=== PATIENT | male | born 1990 ===

== ENCOUNTER 2023-04-08 11:39 | Emergency (ER) | payer OTHER, SELFPAY ==
--- NOTE | ~2023-04-08 | XR_ITS ---
EXAMINATION: XR knee LT min 4V DATE: 04/08/2023 12:10 INDICATION: Left knee pain TECHNIQUE: Four views of the left knee were obtained. COMPARISON: None. FINDINGS: Alignment is normal. There is mild cortical irregularity along the posterior/inferior veronica n of the patella. Joint spaces are normal with no erosions. There is a large knee joint effusion wit h apparent lipohemarthrosis. There is anterior soft tissue swelling of the knee. IMPRESSION: 1. Findings suspicious for patellar fracture and lipohemarthrosis of the knee. Consider further evalu ation with CT or MRI. Reviewed, dictated and finalized at location A. IMPRESSION: 1. Findings suspicious for patellar fracture and lipohemarthrosis of the knee. Consider further evaluation with CT or MRI.
[2023-04-08 11:54] VITALS: BP 121/66; PULSE 80; RESP 18; TEMP 36.6; O2SAT 100
--- NOTE | 2023-04-08 12:34 | ED.LOWEXIN ---
HPI - Extremity Injury (Lower) General Chief Complaint: Extremity Injury, Lower Stated Complaint: lt lower extremity injury Time Seen by Provider: 04/08/23 12:21 Source: patient and RN notes reviewed Mode of arrival: ambulatory Limitations: no limitations History of Present Illness HPI Narrative: Patient presents today with a left knee injury. 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 States his left lower leg went [address] way when his thigh went another way. Reports significant swelling in the knee. Denies pain at rest, but pain increases significantly with movement. He has been taking ibuprofen with some relief. Denies numbness or tingling. Related Data Allergies Allergy/AdvReac Type Severity Reaction Status Date / Time No Known Allergies Allergy Unverified 04/20/21 15:06 Review of Systems Review of Systems: CONSTITUTIONAL: Denies body aches, fever, chills, or sweats. EYES: Denies visual changes, redness, or discharge. ENT: Denies rhinorrhea, congestion, sore throat, or otalgia. CARDIOVASCULAR: Denies chest pain, palpitations, or edema. RESPIRATORY: Denies cough or dyspnea. GASTROINTESTINAL: Denies abdominal pain, nausea, vomiting, or diarrhea. GENITOURINARY: Denies dysuria or hematuria. SKIN: Denies rash, itching, or wounds. MUSCULOSKELETAL: Denies back pain, or myalgia.+ left knee pain and swelling NEUROLOGIC: Denies headache, numbness, tingling, or weakness. PSYCH: Denies depression or anxiety. [facility] Surgical History Surgical History Previous back surgery 2004 Social History Social History Smoking status: Never smoker Second hand tobacco smoke exposure: No Alcohol intake: current Substance use: unknown Comments At time of signature, I have reviewed and agree with nursing past medical, surgical, social and family history unless otherwise noted. Please see nursing chart for further information. There is no relevant family history pertinent to the presenting complaint Exam Narrative: GENERAL: Well-appearing, well-nourished, and in no acute distress. HEAD: Normocephalic, atraumatic. EYES: EOMI. No redness or drainage. Conjunctivae normal. ENT: Mucous membranes pink and moist. NECK: Normal AROM. CHEST: No respiratory distress. EXTREMITIES: Left knee: Obvious moderate diffusion. Mild tenderness to palpation. No abnormal movement of the patella. No tenderness to the patella. No tenderness to the patellar tendon. Skin a decreased range of motion due to pain. Distal sensation intact. Posterior tibial pulse normal. SKIN: Warm, dry, no rash. Capillary refill normal. Normal skin turgor. NEURO: No focal deficits. Alert and oriented x3. Gait steady. PSYCH: Normal affect. No signs of depression or anxiety. Course Course Level of Care: Express Care Visit Vital Signs Vital signs: Vital Signs Temperature 97.8 F 04/08/23 11:54 Pulse Rate 80 04/08/23 11:54 Respiratory Rate 18 04/08/23 11:54 Blood Pressure 121/66 04/08/23 11:54 Pulse Oximetry 100 04/08/23 11:54 Oxygen Delivery Room Air 04/08/23 11:54 Temperature 97.8 F 04/08/23 11:54 Pulse Rate 80 04/08/23 11:54 Respiratory Rate 18 04/08/23 11:54 Blood Pressure 121/66 04/08/23 11:54 Pulse Oximetry 100 04/08/23 11:54 Oxygen Delivery Room Air 04/08/23 11:54 Reviewed. Pt has been instructed to follow up with his PCP regarding his elevated blood pressure today. MDM - Extremity Injury (Lower) MDM Narrative Medical decision making narrative: X-ray shows large lipohemarthrosis with possibility of patellar fracture. Discussed x-ray results with patient and give option to go to the ER for further evaluation of his injury. Patient declines ER transfer today and wishes to follow-up with orthopedics. Will place patient in a knee immobilizer. Prescription for
== END 2023-04-08 13:30 | disposition home or self-care (01) ==
PROVIDERS: Emergency Provider Nurse Practitioner; PCP Internal Medicine
DX: S89.92XA Unspecified injury of left lower leg, initial encounter (principal); W51.XXXA Accidental striking against or bumped into by another person, initial encounter; Y93.22 Activity, ice hockey
CPT/HCPCS: 73564; 99213; G0463; L1830

== ENCOUNTER 2023-04-10 09:25 | Outpatient (CLI) | payer OTHER, SELFPAY ==
--- NOTE | ~2023-04-10 | MR_ITS ---
MRI of the left knee Clinical history: Pain Technique: Coronal proton density and proton density-weighted images, sagittal proton-density and T2 fat-sat images, and axial proton-density fat-saturated images were acquired. Findings: Anterior and posterior cruciate ligaments are intact. Medial collateral ligament and the la teral collateral ligament complex are intact. Popliteus tendon is intact. Medial and lateral menisci are intact, without evidence of tear. There is extensive bone contusion at the medial patella and patellar apex, with additional contusion at the lateral femoral condyle. There is a focal displaced osteochondral fragment from the medial pat ellar facet, measuring approximately 1.1 cm in length. There is high-grade partial versus full-thickn ess tearing in the medial patellofemoral ligament near the medial femoral condyle. Articular cartilage in the medial and lateral compartments is intact. Femoral trochlear cartilage is intact. Distal quadriceps tendon and patellar tendon are intact. There is large joint effusion. Small Diaz c yst present. There is extensive edema throughout the visualized popliteus muscle belly. There is exte nsive soft tissue edema posterior to the distal femur. There is mild prepatellar soft tissue edema. Impression: Findings consistent with recent lateral patellar dislocation-relocation injury. There are bone contus ions at the lateral femoral condyle and medial patella/patellar apex, with associated 1.1 cm osteocho ndral fragment from the medial patellar facet. Associated high-grade partial versus possibly full-thickness tearing near the origin of the MPFL near the medial femoral condyle. Extensive muscle edema of the popliteus muscle belly, compatible with muscle strain. Extensive soft tissue edema posterior to the distal femur, which could indicate an element of capsula r injury versus other posttraumatic change. Large joint effusion, with small Diaz's cyst. Cruciate and collateral ligaments, and menisci, are intact. Reviewed, dictated and finalized at location . Impression: Findings consistent with recent lateral patellar dislocation-relocation injury. There are bone contusions at the lateral femoral condyle and medial patella/pa tellar apex, with associated 1.1 cm osteochondral fragment from the medial gallegos llar facet. Associated high-grade partial versus possibly full-thickness tearing near the o rigin of the MPFL near the medial femoral condyle. Extensive muscle edema of the popliteus muscle belly, compatible with muscle st rain. Extensive soft tissue edema posterior to the distal femur, which could indicate an element of capsular injury versus other posttraumatic change. Large joint effusion, with small Diaz's cyst. Cruciate and collateral ligaments, and menisci, are intact.
== END 2023-04-10 09:26 ==
LOC: MICIMG 09:27
PROVIDERS: PCP Orthopaedic Surgery; Visit Provider Orthopaedic Surgery
DX: S83.402A Sprain of unspecified collateral ligament of left knee, initial encounter (principal); X58.XXXA Exposure to other specified factors, initial encounter
CPT/HCPCS: 73721